=== PATIENT | female | born 1970 | race Two or more races ===

== ENCOUNTER 2021-10-23 10:23 | Emergency (ER) | payer OTHER ==
[~2021-10-23] VITALS: Ht 162.6 cm; Wt 170.0 kg
[2021-10-23] MEDS ORDERED: KETOROLAC 60MG/2ML VIAL IM ONE (11:00)
[2021-10-23] MEDS ORDERED: KETOROLAC 30MG/ML VIAL IM SCH (12:15)
[2021-10-23] MEDS ORDERED: NAPR-681 MT (12:35)
[2021-10-23 13:14] VITALS: BP 152/68
== END 2021-10-23 13:15 | disposition home or self-care (01) ==
LOC: ER 11:07
DX: M75.32 Calcific tendinitis of left shoulder (principal); Z98.890 Other specified postprocedural states
CPT/HCPCS: 73030; 96372; 99283; J1885

== ENCOUNTER 2022-03-08 08:13 | Emergency (ER) | payer OTHER ==
[~2022-03-08] VITALS: Ht 162.6 cm; Wt 68.0 kg
[~2022-03-08 08:13] MED LIST: NAPR-681 MT
[2022-03-08] MEDS ORDERED: KETOROLAC 30MG/ML VIAL IM STA (08:50)
[2022-03-08 10:26] LABS: BASOPHILS % 0.2 % (0.0-2.0); EOSINOPHILS % 0.5 % (0.0-5.0); HEMATOCRIT. 37.5 % (36.0-48.0); LYMPHOCYTES % 13.7 % (20.0-50.0); MEAN CORPUSCULAR HEMOGLOBIN 31.5 pg (28.0-32.0); MEAN CORPUSCULAR VOLUME 91.1 fL (81.0-99.0); MEAN PLATELET VOLUME 9.5 fl (7.4-10.4); MONOCYTES % 4.4 % (2.0-8.0); NEUTROPHILS % 81.2 % (40.0-76.0); PLATELET 182 x1000/uL (130-400); RED BLOOD CELL COUNT 4.12 mill/uL (4.2-5.4); RED CELL DISTRIBUTION WIDTH 12.7 % (11.6-14.6)
[2022-03-08 10:37] LABS: CHLORIDE 110 mEq/L (98-107)
[2022-03-08] MEDS ORDERED: HYDR-4001 MT (11:49)
[2022-03-08] MEDS ORDERED: NAPR-681 MT (11:49)
[2022-03-08 11:55] VITALS: BP 156/76
== END 2022-03-08 12:10 | disposition home or self-care (01) ==
LOC: ER 08:13
DX: M54.30 Sciatica, unspecified side (principal)
CPT/HCPCS: 36415; 72110; 80053; 85025; 96372; 99284; J1885

== ENCOUNTER 2024-03-30 09:31 | Emergency (ER) | payer MEDICAID, OTHER ==
[~2024-03-30] VITALS: Ht 167.6 cm; Wt 75.0 kg
[~2024-03-30 09:31] MED LIST changes: +HYDR-4001 MT
[2024-03-30 09:48] VITALS: BP 129/83; PULSE 72; RESP 18; O2SAT 96
[2024-03-30 10:47] VITALS: TEMP 98.5
[2024-03-30] MEDS: LIDOCAINE HCL/PF 1% 10 MG/ML 5ML VIAL INFIL ONE (10:47)
[2024-03-30] MEDS: TETANUS, DIPHTHERIA, PERTUSSIS VAC/PF 0.5ML (>10YR OLD) IM ONE (10:47)
[2024-03-30] MEDS: BACITRACIN ZINC OINT UDPKT TOP ONE (10:47)
[2024-03-30] MEDS: ACETAMINOPHEN 325MG TABLET PO ONE (10:47)
[2024-03-30] MEDS ORDERED: ACET-2708 PO (12:18)
== END 2024-03-30 12:37 | disposition home or self-care (01) ==
LOC: ER 09:31
DX: S01.511A Laceration without foreign body of lip, initial encounter (principal); W01.0XXA Fall on same level from slipping, tripping and stumbling without subsequent striking against object, initial encounter; Y93.89 Activity, other specified; Y92.89 Other specified places as the place of occurrence of the external cause; Y99.8 Other external cause status
CPT/HCPCS: 90715; 12013; 90471; 99283; J3490; Z7610 ×3